=== PATIENT | male | born 1990 | race Caucasian/White ===

== ENCOUNTER 2017-09-13 04:12 | Emergency (ER) | payer BC, OTHER ==
[~2017-09-13] VITALS: Ht 175.3 cm; Wt 116.8 kg
[2017-09-13 04:16] VITALS: TEMP 36.5; Ht 175.3 cm; Wt 116.8 kg
[2017-09-13] MEDS ORDERED: KETOROLAC TROMETHAMINE 30 MG/ML VIAL IV STA (04:23)
[2017-09-13] MEDS ORDERED: ONDANSETRON INJ 2 MG/ML 2 ML VIAL IV STA (04:23)
[2017-09-13] MEDS ORDERED: SODIUM CHLORIDE 0.9% 1000ML 1,000 ML IV ONE (04:30)
[2017-09-13 04:39] LABS: BASO % 0.8 %; BASO ABS # 0.06 K/uL (0-0.2); COMPLETE YES; EOS % 3.4 %; HEMATOCRIT 43.8 % (42-52); IG% 0.8 %; LYMPH % 34.6 %; LYMPH ABS # 2.62 K/uL (1.2-3.4); MEAN CELL VOLUME 88.8 fL (80-100); MEAN CORPUSCULAR HGB CONC 34.9 g/dl (32-36); MEAN PLATELET VOLUME 10.2 fL (7.4-10.4); MONO % 9.1 %; NEUT % 51.3 %; PLATELET COUNT 246 K/uL (130-400); RED BLOOD COUNT 4.93 M/uL (4.7-6.1); WHITE BLOOD COUNT 7.58 K/uL (4.8-10.8)
[2017-09-13 05:01] LABS: BUN/CREATININE RATIO 15.7 (10-20); CALCIUM 9.5 mg/dl (8.5-10.1); CREATININE 1.03 mg/dl (0.60-1.40); POTASSIUM 3.8 mmol/L (3.5-5.1)
[2017-09-13 05:04] LABS: ALB/GLOB RATIO 0.8 (0.9-2)
[2017-09-13 05:15] VITALS: BP 122/72; PULSE 70; O2SAT 97
[2017-09-13 05:53] LABS: URINE APPEARANCE CLEAR (CLEAR); URINE BILIRUBIN NEG (NEG); URINE COLOR YELLOW; URINE NITRITE NEG (NEG); URINE SPECIFIC GRAVITY 1.023 (1.000-1.030); UROBILINOGEN NEG (NEG); ZZUR CULT IF INDIC CLEAN CATCH NO
[2017-09-13 05:56] LABS: MANUAL MICROSCOPIC REQUIRED? NO; REVIEW REQ? NO
--- NOTE | 2017-09-13 06:56 | DIAGNOSTIC IMAGING REPORT ---
ABD/PELVIS NO IV OR ORAL CONT HISTORY: 26 years-old Male Right flank pain acute right-sided flank pain. History of nephrolithiasis. COMPARISON: CT 07/30/2015 TECHNIQUE: Multiple axial CT images of the abdomen and pelvis were obtained without contrast. A dose lowering technique was used consistent with the principals of JOE. FINDINGS: 4 mm pleural-based solid pulmonary nodule is seen within the lateral segment right middle lobe, image 20 of series 3 which is unchanged from comparison of 07/30/2015 and likely benign. Lung bases are otherwise generally clear. No pneumoperitoneum. Imaged inferior cardiac chambers are unremarkable. Prior cholecystectomy. The liver, spleen, pancreas and adrenal glands are unremarkable. No intrahepatic biliary ductal dilation. Punctate nonobstructing calculus of the interpolar left kidney is seen on image 181 of series 3. Right kidney and ureters are within normal limits. No hydronephrosis. There is an unchanged punctate calcification seen within the region of the dependent urinary bladder on image 434 of series 3 which appears unchanged from comparison. Urinary bladder is partially collapsed. Prostate is unremarkable. Small fat filled bilateral inguinal hernias. The dominant aorta is normal in course and caliber. No bulky adenopathy. There is no bowel obstruction or focal bowel wall thickening. There are a few scattered noninflamed colonic diverticula. The appendix appears normal. Soft tissues are unremarkable. Bones appear intact. Multilevel Schmorl's nodes are seen throughout the thoracolumbar spine, advanced for patient's age. Remote bilateral pars defects at L5 without spondylolisthesis. IMPRESSION: 1. Punctate nonobstructing calculus of the inferior pole left kidney with unchanged punctate calcification within the region of the dependent urinary bladder, suspicious for bladder calculus. These findings are unchanged from 07/30/2015 without evidence of obstructive uropathy. 2. Normal appendix. 3. Prior cholecystectomy. 4. Minimal colonic diverticulosis without CT evidence of acute diverticulitis. The above report was generated using voice recognition software. It may contain grammatical, syntax or spelling errors. Electronically signed by: Moises Andino M.D. 09/13/2017 6:55 AM Dictated Date/Time: 09/13/2017 6:49 AM
--- NOTE | 2017-09-13 22:48 | EMERGENCY ROOM VISIT NOTE ---
History First contact with patient: 04:19 Chief Complaint: FLANK PAIN Stated Complaint: PAIN/CRAMP FROM RIGHT SIDE History of Present Illness The patient is a 26 year old male who presents to the Emergency Room with complaints of right-sided flank pain that woke him from sleep about 2 hours ago. The patient states the pain originates in his mid low back on the right, and radiates around to the front of his abdomen. It does not appear to improve or worsen with movement. The pain was a 10/10 at the worst but has improved and is now a 7/10. He has not taken anything [id number] for his symptoms. The patient reports an old history of kidney stones, but not for several years. No injury or trauma. No difficulty using the bathroom. Review of Systems More than 10 systems were reviewed and otherwise negative with the exception of history of present illness. Past Medical/Surgical History Medical Problems: (1) GERD (gastroesophageal reflux disease) Family History Diabetes mellitus Heart disease Social History Smoking Status: Never Smoker Alcohol Use: none Marital Status: single Housing Status: lives with roommate Occupation Status: employed Current/Historical Medications No Active Prescriptions or Reported Meds Physical Exam Vital Signs Date Time Temp Pulse Resp B/P (MAP) Pulse Ox O2 Delivery O2 Flow Rate FiO2 09/13/17 05:15 70 18 122/72 97 Room Air 09/13/17 04:16 36.5 71 18 149/97 99 Room Air Physical Exam VITALS: Vitals are noted on the nurse's note and reviewed by myself. Vital signs stable. GENERAL: Well-developed, well-nourished, white male, who is in no acute distress and resting comfortably. Patient is cooperative with the examination. NECK: Supple without nuchal rigidity. No lymphadenopathy. No thyromegaly. Cervical spine is nontender. HEART: Regular rate and rhythm without murmurs gallops or rubs. LUNGS: Clear to auscultation bilaterally without wheezes, rales or rhonchi. No retractions or accessory muscle use. ABDOMEN: Positive normal bowel sounds x 4. Soft, nontender, without masses or organomegaly. No guarding or rebound tenderness. No CVA tenderness. MUSCULOSKELETAL: No muscle atrophy, erythema, or edema noted. Full range of motion without joint tenderness in all extremities. Medical Decision & Procedures ER Provider Diagnostic Interpretation: ABD/PELVIS NO IV OR ORAL CONT HISTORY: 26 years-old Male Right flank pain acute right-sided flank pain. History of nephrolithiasis. COMPARISON: CT 07/30/2015 TECHNIQUE: Multiple axial CT images of the abdomen and pelvis were obtained without contrast. A dose lowering technique was used consistent with the principals of JOE. FINDINGS: 4 mm pleural-based solid pulmonary nodule is seen within the lateral segment right middle lobe, image 20 of series 3 which is unchanged from comparison of 07/30/2015 and likely benign. Lung bases are otherwise generally clear. No pneumoperitoneum. Imaged inferior cardiac chambers are unremarkable. Prior cholecystectomy. The liver, spleen, pancreas and adrenal glands are unremarkable. No intrahepatic biliary ductal dilation. Punctate nonobstructing calculus of the interpolar left kidney is seen on image 181 of series 3. Right kidney and ureters are within normal limits. No hydronephrosis. There is an unchanged punctate calcification seen within the region of the dependent urinary bladder on image 434 of series 3 which appears unchanged from comparison. Urinary bladder is partially collapsed. Prostate is unremarkable. Small fat filled bilateral inguinal hernias. The dominant aorta is normal in course and caliber. No bulky adenopathy. There is no bowel obstruction or focal bowel wall thickening. There are a few scattered noninflamed colonic diverticula. The appendix appears normal. Soft tissues are unremarkable. Bones appear intact. Multilevel Schmorl's nodes are seen throughout the thoracolumbar spine, advanced for patient's age. Remote bilateral pars defects at L5 without spondylolisthesis. IMPRESSION: 1. Punctate nonobstructing calculus of the inferior pole left kidney with unchanged punctate calcification within the region of the dependent urinary bladder, suspicious for bladder calculus. These findings are unchanged from 07/30/2015 without evidence of obstructive uropathy. 2. Normal appendix. 3. Prior cholecystectomy. 4. Minimal colonic diverticulosis without CT evidence of acute diverticulitis. Laboratory Results 09/13/17 04:30 Red Blood Count 4.93, Mean Corpuscular Volume 88.8, Mean Corpuscular Hemoglobin 31.0, Mean Corpuscular Hemoglobin Concent 34.9, Mean Platelet Volume 10.2, Neutrophils (%) (Auto) 51.3, Lymphocytes (%) (Auto) 34.6, Monocytes (%) (Auto) 9.1, Eosinophils (%) (Auto) 3.4, Basophils (%) (Auto) 0.8, Neutrophils # (Auto) 3.89, Lymphocytes # (Auto) 2.62, Monocytes # (Auto) 0.69, Eosinophils # (Auto) 0.26, Basophils # (Auto) 0.06 09/13/17 04:30 Test 09/13/17 04:30 09/13/17 05:42 White Blood Count 7.58 K/uL (4.8-10.8) Red Blood Count 4.93 M/uL (4.7-6.1) Hemoglobin 15.3 g/dL (14.0-18.0) Hematocrit 43.8 % (42-52) Mean Corpuscular Volume 88.8 fL (80-100) Mean Corpuscular Hemoglobin 31.0 pg (25-34) Mean Corpuscular Hemoglobin Concent 34.9 g/dl (32-36) Platelet Count 246 K/uL (130-400) Mean Platelet Volume 10.2 fL (7.4-10.4) Neutrophils (%) (Auto) 51.3 % Lymphocytes (%) (Auto) 34.6 % Monocytes (%) (Auto) 9.1 % Eosinophils (%) (Auto) 3.4 % Basophils (%) (Auto) 0.8 % Neutrophils # (Auto) 3.89 K/uL (1.4-6.5) Lymphocytes # (Auto) 2.62 K/uL (1.2-3.4) Monocytes # (Auto) 0.69 K/uL (0.11-0.59) Eosinophils # (Auto) 0.26 K/uL (0-0.5) Basophils # (Auto) 0.06 K/uL (0-0.2) RDW Standard Deviation 41.3 fL (36.4-46.3) RDW Coefficient of Variation 12.7 % (11.5-14.5) Immature Granulocyte % (Auto) 0.8 % Immature Granulocyte # (Auto) 0.06 K/uL (0.00-0.02) Anion Gap 7.0 mmol/L (3-11) Est Creatinine Clear Calc Drug Dose 134.7 ml/min Estimated GFR () 114.0 Estimated GFR (Non- 98.4 BUN/Creatinine Ratio 15.7 (10-20) Calcium Level 9.5 mg/dl (8.5-10.1) Total Bilirubin 0.4 mg/dl (0.2-1) Aspartate Amino Transf (AST/SGOT) 27 U/L (15-37) Alanine Aminotransferase (ALT/SGPT) 57 U/L (12-78) Alkaline Phosphatase 80 U/L (45-117) Total Protein 8.5 gm/dl (6.4-8.2) Albumin 3.9 gm/dl (3.4-5.0) Globulin 4.6 gm/dl (2.5-4.0) Albumin/Globulin Ratio 0.8 (0.9-2) Lipase 147 U/L (73-393) Urine Color YELLOW Urine Appearance CLEAR (CLEAR) Urine pH 5.0 (4.5-7.5) Urine Specific [place] 1.023 (1.000-1.030) Urine Protein NEG (NEG) Urine Glucose (UA) NEG (NEG) Urine Ketones NEG (NEG) Urine Occult Blood 2+ (NEG) Urine Nitrite NEG (NEG) Urine Bilirubin NEG (NEG) Urine Urobilinogen NEG (NEG) Urine Leukocyte Esterase NEG (NEG) Urine WBC (Auto) 1-5 /hpf (0-5) Urine RBC (Auto) 0-4 /hpf (0-4) Urine Hyaline Casts (Auto) 1-5 /lpf (0-5) Urine Epithelial Cells (Auto) 5-10 /lpf (0-5) Urine Bacteria (Auto) NEG (NEG) Medications Administered Medications (Trade) Dose Ordered Sig/Maurisio Route Start Time Stop Time Status Last Admin Dose Admin Sodium Chloride 1,000 ml @ 999 mls/hr Q1H1M ONCE IV 09/13/17 04:30 09/13/17 05:30 DC 09/13/17 04:35 999 MLS/HR Ondansetron HCl (Zofran Inj) 4 mg NOW STAT IV 09/13/17 04:23 09/13/17 04:25 DC 09/13/17 04:36 4 MG Ketorolac Tromethamine (Toradol Inj) 30 mg NOW STAT IV 09/13/17 04:23 09/13/17 04:25 DC 09/13/17 04:36 30 MG ED Course Physical exam and history were performed. Nursing notes, EMR, and Medication List were personally reviewed. Patient appears to have right flank pain that began about 2 hours ago. The patient evidently has a history of kidney stones. He does not appear toxic on examination and is without reproducible tenderness. IV access was established and labs were obtained. The patient was hydrated and medicated as above. CT scan was performed. The patient's blood work is as above and was reviewed. He does not have a significantly elevated white blood cell count or gross anemia, bandemia, or significant electrolyte imbalance. Lipase and transaminases are not diagnostic. His CT scan does not show evidence of acute ureteral calculi or surgical abdomen. There appears to be a stone in the bladder, however this is evidently present from 2014. The patient did have some mild blood in the urine without obvious infection with culture pending. Overall the patient appears well for discharge home. He may have passed a kidney stone which would explain the blood, pain, and no significant findings on scan. He may also have been experiencing musculoskeletal etiology. Regardless I feel that he should follow with his primary care physician and possibly urology for ongoing care. He was otherwise invited back to the ER with any new, worsening, or concerning symptoms. The chart was completed utilizing [employer] Speech Voice Recognition Software. Grammatical errors, random word insertions, pronoun errors, and incomplete sentences are an occasional consequence of this system due to software limitations, ambient noise, and hardware issues. Any formal questions or concerns about the content, text, or information contained within the body of this dictation should be directly addressed to the provider for clarification. . Medical Decision Differential diagnosis: Etiologies such as renal colic, appendicitis, diverticulitis, mesenteric ischemia, aortic pathology, infections, inflammatory bowel disease, PUD, biliary pathology, UTI, as well as others were entertained. Medication Reconcilliation Current Medication List: was personally reviewed by me Blood Pressure Screening Patient's blood pressure: Normal blood pressure Impression Primary Impression: Right flank pain Departure Information Dispostion Home / Self-Care Condition GOOD Prescriptions No Active Prescriptions or Reported Meds Referrals No Doctor, Assigned (PCP) Forms HOME CARE DOCUMENTATION FORM, IMPORTANT VISIT INFORMATION Patient Instructions My [facility] Additional Instructions You were seen and evaluated today on an emergency basis only. This is not a substitute for, or an effort to provide, complete comprehensive medical care. It is not possible to recognize and treat all injuries or illnesses in a single emergency department visit. For this reason it is recommended that you followup with your primary care physician in the next 1-2 days for recheck of your condition. For baseline pain relief you may alternate ibuprofen and acetaminophen every 4 hours for pain control. Take 600 mg ibuprofen (Advil) and then 4 hours later take 1000 mg acetaminophen (Tylenol). Do not take more than 3000 mg acetaminophen in a single day. Drink plenty of fluids and remain well hydrated. You are welcome to return to the emergency department anytime with new, worsening, or concerning symptoms.
== END 2017-09-13 05:44 | disposition home or self-care (01) ==
LOC: C.EDB 04:13 → C.EDA 05:44
DX: R10.9 Unspecified abdominal pain (principal); K21.9 Gastro-esophageal reflux disease without esophagitis; Z87.442 Personal history of urinary calculi

== ENCOUNTER 2018-03-02 16:44 | Emergency (ER) | payer BC, OTHER ==
[~2018-03-02] VITALS: Ht 175.3 cm; Wt 118.6 kg
[2018-03-02 16:46] VITALS: TEMP 36.7; Ht 175.3 cm; Wt 118.6 kg
[2018-03-02] MEDS ORDERED: AMOXICILLIN/CLAVULANATE TAB 875 MG TAB PO STA (17:03)
[2018-03-02] MEDS ORDERED: XYLOCAINE 1%/SOD BICARB 20 ML VIAL INFIL STA (17:03)
[2018-03-02] MEDS ORDERED: DIPHTHERIA/TETANUS/PERTUSSIS 0.5 ML SYR/VIAL IM. ONE (17:15)
[2018-03-02] MEDS ORDERED: CALC500C3 PO (17:16)
[2018-03-02] MEDS ORDERED: DIPH25CA65 PO (17:16)
[2018-03-02] MEDS ORDERED: AMOX875T PO (17:48)
--- NOTE | 2018-03-02 17:49 | EMERGENCY ROOM VISIT NOTE ---
ED Visit Note First contact with patient: 16:50 CHIEF COMPLAINT: Finger laceration HISTORY OF PRESENT ILLNESS: This 27-year-old male patient presents to the emergency department approximately 45 minutes after receiving a dog bite to the left first finger while breaking up a dog bite. Patient states his 2 dogs were fighting, and he attempted to break it up,. When he obtains the bite. There are 2 small lacerations on the dorsal aspect of the left thumb, and he states bleeding was easily controlled. The bleeding has stopped. Denies weakness or numbness of the finger. The patient has full range of motion of the fingers. The patient rates the pain as throbbing and 0/10. The patient denies any other injuries. The patient's tetanus shot is not up to date. REVIEW OF SYSTEMS: A 6 system review of systems was completed with positives and pertinent negatives listed in the HPI. ALLERGIES: Dust, bee stings MEDICATIONS: None PMH: None SOCIAL HISTORY: The patient lives locally with family. He denies drug, alcohol , tobacco use. PHYSICAL EXAM: Vital Signs: Reviewed Nurse's notes, vital signs stable. GENERAL : This is a 27-year-old white male, in no acute distress, well developed, well nourished. SKIN: There are 2, 1 cm long lacerations on the dorsal aspect of the left thumb. These lacerations are approximately 1 cm in length per laceration, the first laceration located over the distal phalanx and the second laceration located over the proximal phalanx. The edges gape apart with traction. There is no foreign material in the wound and it looks clean. There is no active bleeding. No deep structures such as tendons, bones, or significant blood vessels are seen in the base of the wound. Extension and flexion of the finger is full and strong. Full range of motion of the wrist and other fingers. Capillary refill less than 2 seconds. Normal sensation to light and sharp touch. EMERGENCY DEPARTMENT COURSE: I examined the patient. Verbal consent was obtained to perform the procedure. The procedure was performed by the physician virtual customer assistant student under my direct supervision. Using sterile technique the wound was cleansed with Betadine. 6 ml of 1% buffered lidocaine was used to perform a digital block to anesthetize the patient. The area was sterilely draped. Once the patient was anesthetized, the wounds were copiously irrigated under pressure with sterile saline. The wounds were explored and there were no deep structures injured. The lacerations were repaired using 4 simple interrupted 5-0 nylon sutures on the distal laceration and 3 simple interrupted 5-0 nylon sutures on the proximal laceration. The patient tolerated the procedure well. Hemostasis was achieved. The area was cleaned with sterile saline and dressed with bacitracin ointment and bandage. The patient was given a tetanus booster and his first dose of Augmentin. The patient will be treated prophylactically with Augmentin for 1 week. The patient was discharged home in good condition. I attest that I have personally reviewed the patient's current medication list. Patient was found to have normal blood pressure on screening and does not require follow-up. Differential diagnosis includes laceration, bite, rabies, infection, contusion, fracture, sprain/strain, tendon or ligament injury, neurovascular compromise, foreign body, assault, and others DIAGNOSIS: Finger laceration, dog bite The chart was completed utilizing [employer] Speech voice recognition software. Grammatical errors, random word insertions, pronoun errors, and incomplete sentences are an occasional consequence of this system due to software limitations, ambient noise, and hardware issues. Any formal questions or concerns about the content, text, or information contained within the body of this dictation should be directly addressed to the provider for clarification. Problem List Medical Problems: (1) GERD (gastroesophageal reflux disease) Status: Chronic Current/Historical Medications Scheduled Amoxicillin & Pot Clavulanate (Augmentin 875-125 mg), 1 TAB PO BID Calcium Carbonate (Tums), 500 MG PO PRN Diphenhydramine Hcl (Benadryl Allergy), 2 CAP PO PRN UD Allergies Coded Allergies: Dust (Unverified Allergy, Mild, SNEEZING, 09/13/17) BEE STING (Unverified Allergy, Unknown, ?, 09/13/17) Uncoded Allergies: allergy to "the outside world" (Allergy, Mild, 01/31/06) Vital Signs Date Time Temp Pulse Resp B/P (MAP) Pulse Ox O2 Delivery O2 Flow Rate FiO2 03/02/18 18:30 101 18 137/95 96 03/02/18 16:46 36.7 123 20 163/90 96 Room Air Medications Administered Medications (Trade) Dose Ordered Sig/Maurisio Route Start Time Stop Time Status Last Admin Dose Admin Lidocaine HCl (Buffered Lidocaine 1% Inj) 20 ml ONE STAT INFIL 03/02/18 17:03 03/02/18 17:05 DC 03/02/18 17:19 20 ML Diphtheria/ Pertussis/Tetanus Vacc (Adacel Inj) 0.5 ml ONCE ONCE IM. 03/02/18 17:15 03/02/18 17:16 DC 03/02/18 17:21 0.5 ML Amoxicillin/ Clavulanate Potassium (Augmentin Tab) 875 mg ONE STAT PO 03/02/18 17:03 03/02/18 17:05 DC 03/02/18 17:19 875 MG Departure Information Impression Primary Impression: Dog bite Additional Impression: Thumb laceration Dispostion Home / Self-Care Condition GOOD Prescriptions Amoxicillin & Pot Clavulanate (Augmentin 875-125 mg) 1 Tab Tab 1 TAB PO BID for 7 Days, #14 TAB Prov: Dilia Pa PA-C 03/02/18 Referrals Taylor Hernandez M.D. (MEDICAL) (PCP) Patient Instructions ED Bite Dog, ED Laceration Hand, [facility] Additional Instructions You have received 7 sutures on your right thumb. These sutures are NOT dissolvable and WILL need to be removed by a health care provider in 10-14 days. You can return to the Emergency Department or contact your Primary Care Provider to have the sutures removed. Proper wound care is essential for adequate wound healing and infection prevention. You can shower and clean the wound with soap and water. Do not scour over the wound, pat dry with a towel. Do not submerse the wound (i.e. bathe or dish wash) until the sutures have been removed. You can use an antibiotic ointment with a dressing over the wound for the next 3-4 days. After this time you may leave the wound dry and open to the air. If crust develops over the wound you can use a Q-tip to apply a 1:1 peroxide:water solution to clean the wound. Look for signs of infection of the wound including: increased pain, swelling, foul discharge, streaking, or increased temperature. If any of these are noticed you should return to the Emergency Department for further assessment and treatment. As with any laceration you may have received nerve damage to the surrounding tissues. This damage may or may not be permanent. You should keep the area covered with sunscreen for the first 6 months to 1 year when at risk for exposure to help minimize scarring. You can also use scar reducing creams or Vitamin E oil to help minimize scarring. For pain control, you can use the following [id number] medicines (if >12 yo): Ibuprofen(Motrin, Advil) may be used for fever or pain. Use 600mg every six hours as needed. Take with food. Avoid using more than 2400mg in a 24 hour period. Do not use 2400mg per day for more than three consecutive days without physician direction. Prolonged inappropriate use can lead to stomach upset or ulcers. (AND/OR) Acetaminophen(Tylenol) may be used for fever or pain. Use 1000mg every six hours as needed. Avoid using more than 3000mg in a 24 hour period. Where the metal finger splint to help keep the thumb and extension and help with healing. You may remove this splint for comfort or to bathe. Return to the emergency department if your symptoms worsen despite treatment course outlined above. Problem Qualifiers Primary Impression: Dog bite Encounter type: initial encounter Qualified Codes: W54.0XXA - Bitten by dog , initial encounter Additional Impression: Thumb laceration Encounter type: initial encounter Damage to nail status: without damage Foreign body presence: without foreign body Laterality: right Qualified Codes: S61.011A - Laceration without foreign body of right thumb without damage to nail, initial encounter
[2018-03-02 18:30] VITALS: BP 137/95; PULSE 101; O2SAT 96
== END 2018-03-02 18:31 | disposition home or self-care (01) ==
LOC: C.EDB 16:46 → C.EDD 18:31
DX: S61.052A Open bite of left thumb without damage to nail, initial encounter (principal); W54.0XXA Bitten by dog, initial encounter; Z23 Encounter for immunization; Z91.030 Bee allergy status; Z91.048 Other nonmedicinal substance allergy status